=== PATIENT | female | born 1985 | race Caucasian/White ===

== ENCOUNTER 2024-02-04 09:49 | Emergency (ER) | payer MEDICAID, SELFPAY ==
[2024-02-04 10:33] VITALS: BP 131/86; PULSE 78; RESP 18; TEMP 36.9; O2SAT 99; BMI 26.6
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
[2024-02-04] MEDS: DIPHTH,PERTUSS(ACELL),TET VAC 0.5 ML VIAL IMi (11:14)
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
== END 2024-02-04 12:41 | disposition home or self-care (01) ==
PROVIDERS: Emergency Provider Emergency Medicine; PCP Family Medicine
DX: S19.9XXA Unspecified injury of neck, initial encounter (principal); S09.90XA Unspecified injury of head, initial encounter; M25.521 Pain in right elbow; V03.10XA Pedestrian on foot injured in collision with car, pick-up truck or van in traffic accident, initial encounter; Z23 Encounter for immunization
CPT/HCPCS: 70450; 72125; 90471; 90715; 99284

== ENCOUNTER 2024-12-28 10:20 | Outpatient (AMB) | payer MEDICAID, SELFPAY ==
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
[2024-12-28 10:43] VITALS: BP 125/83; PULSE 75; RESP 17; TEMP 36.8; O2SAT 98; BMI 27.1
== END 2024-12-28 11:32 | disposition home or self-care (01) ==
LOC: HODSOBC 10:20
PROVIDERS: PCP Family Medicine; Referring Provider Family Medicine; Supervising Provider Obstetrics & Gynecology; Visit Provider Obstetrics & Gynecology
DX: O09.521 Supervision of elderly multigravida, first trimester (principal); Z3A.01 Less than 8 weeks gestation of pregnancy
CPT/HCPCS: 99215; G0463

== ENCOUNTER 2025-02-06 14:12 | Outpatient (AMB) | payer MEDICAID, SELFPAY ==
[2025-02-06 14:24] VITALS: BP 129/80; PULSE 66; RESP 18; TEMP 36.6; O2SAT 99; BMI 28.1
--- NOTE | 2025-02-06 14:24 | OBCLNT_ITS ---
Vital Signs 02/06/25 14:24 Height 1.65 m Height Method Stated Weight 76.657 kg Weight Measurement Method Standing Scale BMI 28.1 BP 129/80 Blood Pressure Source Automatic Cuff Blood Pressure Location Right Upper Arm Position Sitting Respiration 18 Pulse 66 Pulse Source Monitor Temp 97.9 F Temp Source Temporal Artery Scan Pulse Oximetry (%) 99 Oxygen Delivery Method Room Air Allergies/Home Meds Allergies & Medications Allergies No Known Allergies Allergy (Verified 02/06/25 14:25) Medication Reconciliation vit no.95-ferrous fumarate 28 mg-folic acid 800 mcg tablet () 1 tab PO QDAY 09/03/22 [History Confirmed 02/06/25] Immunizations Immunizations Flu Vaccine in the Last 12 Months: No Flu Vaccine Exclusion Criteria: No Exclusion Criteria Care OB Visit Log OB Flowsheet Initial Weight: Not Recorded Date -?-?-?-?-?-?-?-?-?-?-?-?- EGA Weight BP Alb Glu CTX Pres Fundal ht FHR Mov Dilation Station Effacement Hx Notes Visit Note 12/28/24 -?-?-?-?-?-?-?-?-?-?-?-?- 7w 6d 74.162 kg 125/83 02/06/25 -?-?-?-?-?-?-?-?-?-?-?-?- 13w 4d 76.657 kg 129/80 13 162 JUSTA Calculator Estimated Delivery Date Method Current WG Current Estimate 08/10/25 LMP (Uncertain) 13w 6d Notes Visit Date: 02/06/25 Last Updated by: Faby Flores MD bedside US c/w 13.3 weeks / FHRate is 162 bpm/ she is B positive /NIPT negative and Male gender / rest of the labs are all normal follow up in 4 weeks and AFP next visit Visit Date: 12/28/24 Last Updated by: Faby Flores MD AMA G5 P 3 at 7.6 weeks based on LMP of 11/03/2024 no complaints Follow up 4 weeks Office Procedures OBC Clinic LOC & Office Proc's Nursing/Assessment Patient Status: Established Patient OB Clinic Nursing Assessment: Medication Reconciliation, Update PMH in EMR and Vital Signs OB Clinic Coordination of Care: Complex Care and Chronic Disease 1-5, Education Complex Pt/Fam, Consent,records obtained, informed consent, Lab and Imaging orders, Results/Orders obtained and Staff clarify orders Special Needs: Heart tones Established Patient Charge Established Patient Point Assignment: 140 Established Patient Point Charge: EP Level 4 (120-155) Assessment & Plan Diagnosis / Problem List (1) Advanced maternal age (AMA) in : Status: Acute (2) : Status: Acute Qualifiers: Weeks of gestation: 13 weeks Qualified Code(s): Z3A.13 - 13 weeks gestation of Additional Assessment 39 years , AMA and is 13.3 weeks today / AFP next visit and refer for second trimester scan and MFM for AMA next visit
== END 2025-02-06 15:10 | disposition home or self-care (01) ==
LOC: HODSOBC 14:12
PROVIDERS: Supervising Provider Obstetrics & Gynecology; Visit Provider Obstetrics & Gynecology
DX: O09.521 Supervision of elderly multigravida, first trimester (principal); Z3A.13 13 weeks gestation of pregnancy
CPT/HCPCS: 99214; G0463

== ENCOUNTER 2025-03-07 09:03 | Outpatient (AMB) | payer MEDICAID, SELFPAY ==
[2025-03-07 09:24] VITALS: BP 119/75; PULSE 65; RESP 18; TEMP 36.8; O2SAT 98; BMI 29.5
--- NOTE | 2025-03-07 09:24 | OBCLNT_ITS ---
Vital Signs 03/07/25 09:24 Height 1.65 m Height Method Stated Weight 80.456 kg Weight Measurement Method Standing Scale BMI 29.5 BP 119/75 Blood Pressure Source Automatic Cuff Blood Pressure Location Right Upper Arm Position Sitting Respiration 18 Pulse 65 Pulse Source Monitor Temp 98.2 F Temp Source Temporal Artery Scan Pulse Oximetry (%) 98 Oxygen Delivery Method Room Air Allergies/Home Meds Allergies & Medications Allergies No Known Allergies Allergy (Verified 03/07/25 09:25) Medication Reconciliation vit no.95-ferrous fumarate 28 mg-folic acid 800 mcg tablet () 1 tab PO QDAY 09/03/22 [History Confirmed 03/07/25] Immunizations Immunizations Flu Vaccine in the Last 12 Months: No Flu Vaccine Exclusion Criteria: No Exclusion Criteria Care OB Visit Log OB Flowsheet Initial Weight: Not Recorded Date -?-?-?-?-?-?-?-?-?-?-?-?- EGA Weight BP Alb Glu CTX Pres Fundal ht FHR Mov Dilation Station Effacement Hx Notes Visit Note 12/28/24 -?-?-?-?-?-?-?-?-?-?-?-?- 7w 6d 74.162 kg 125/83 02/06/25 -?-?-?-?-?-?-?-?-?-?-?-?- 13w 4d 76.657 kg 129/80 13 162 03/07/25 -?-?-?-?-?-?-?-?-?-?-?-?- 17w 5d 80.456 kg 119/75 18 158 active JUST[employer] Calculator Estimated Delivery Date Method Current WG Current Estimate 08/10/25 LMP (Uncertain) 17w 5d Notes Visit Date: 03/07/25 Last Updated by: Faby Flores MD needs MSAFP now / 17.5 weeks today 39 years old / refer for anatomy scan also to [facility] / follow up in 4 weeks Visit Date: 02/06/25 Last Updated by: Faby Flores MD bedside US c/w 13.3 weeks / FHRate is 162 bpm/ she is B positive /NIPT negative and Male gender / rest of the labs are all normal follow up in 4 weeks and AFP next visit Visit Date: 10/10/25 Last Updated by: Faby Flores MD AMA G5 P 3 at 7.6 weeks based on LMP of 11/03/2024 no complaints Follow up 4 weeks Office Procedures [facility] LOC & Office Proc's Nursing/Assessment Patient Status: Established Patient OB Clinic Nursing Assessment: Medication Reconciliation, Update PMH in EMR and Vital Signs OB Clinic Coordination of Care: Complex Care and Chronic Disease 1-5, Education Complex Pt/Fam, Consent,records obtained, informed consent, Lab and Imaging orders, Results/Orders obtained and Staff clarify orders Special Needs: Heart tones Established Patient Charge Established Patient Point Assignment: 140 Established Patient Point Charge: EP Level 4 (120-155) Assessment & Plan Diagnosis / Problem List (1) Advanced maternal age (AMA) in : Status: Acute (2) : Status: Acute Qualifiers: Weeks of gestation: 13 weeks Qualified Code(s): Z3A.13 - 13 weeks gestation of Additional Assessment needs MSAFP now / 17.5 weeks today 39 years old / refer for anatomy scan also to [facility] / follow up in 4 weeks Additional Plan Follow Up: 4 Weeks
== END 2025-03-07 10:03 | disposition home or self-care (01) ==
PROVIDERS: Supervising Provider Obstetrics & Gynecology; Visit Provider Obstetrics & Gynecology
DX: O09.522 Supervision of elderly multigravida, second trimester (principal); Z3A.17 17 weeks gestation of pregnancy
CPT/HCPCS: 99214; G0463